=== PATIENT | female | born 1970 | race Caucasian/White ===

== ENCOUNTER 2019-10-31 10:26 | Outpatient (CLI) | payer OTHER, SELFPAY ==
--- NOTE | ~2019-10-31 | MM_ITS ---
EXAMINATION: MM screening justa BI w donnie HISTORY: Screening mammogram, family history of breast cancer in her mother. TECHNIQUE: Craniocaudal and mediolateral oblique 3-D tomosynthesis images were obtained and synthetic 2-D images were generated. CAD analysis was submitted and interpreted. COMPARISON: 10/27/2018, 09/20/2017, 06/22/2011 BREAST PARENCHYMAL COMPOSITION: There are scattered areas of fibroglandular density. FINDINGS: RIGHT BREAST: There is no evidence of suspicious mass, calcification, or architectural distortion to suggest malignancy. There has been no significant interval change. LEFT BREAST: An asymmetry is present in the middle third of the central breast 5.5 cm deep to the nip ple on the craniocaudal view. IMPRESSION: 1. Left breast asymmetry on the craniocaudal view. 2. Additional mammographic views and possible breast ultrasound are recommended. BI-RADS Category 0: Incomplete: Needs additional imaging evaluation. Reviewed, dictated and finalized at location A. IMPRESSION: 1. Left breast asymmetry on the craniocaudal view. 2. Additional mammographic views and possible breast ultrasound are recommended . BI-RADS Category 0: Incomplete: Needs additional imaging evaluation.
== END 2019-10-31 10:27 | disposition home or self-care (01) ==
LOC: ANHIMG 10:28
PROVIDERS: PCP Family Medicine; Visit Provider Nurse Practitioner Obstetrics & Gynecology
DX: Z12.31 Encounter for screening mammogram for malignant neoplasm of breast (principal); R92.8 Other abnormal and inconclusive findings on diagnostic imaging of breast
CPT/HCPCS: 77063; 77067

== ENCOUNTER 2019-11-09 13:53 | Outpatient (CLI) | payer OTHER, SELFPAY ==
--- NOTE | ~2019-11-09 | MMUS_ITS ---
EXAMINATION: MM diagnostic mammo unilat LT, US breast LT limited HISTORY: Abnormal finding on 10/31/2019 screening mammogram TECHNIQUE: Additional 3-D full-field ML and spot CC tomosynthesis images of the left breast were perf ormed and synthetic 2-D images were generated. Rolled medial craniocaudal and rolled lateral cranioca udal views. CAD analysis was submitted and interpreted. High resolution targeted mid medial left [address] ultrasound was performed. COMPARISON: 10/31/2019 bilateral digital screening mammogram FINDINGS: MAMMOGRAPHIC FINDINGS: No reproducible mass or architectural distortion is confirmed. ULTRASOUND: There is no evidence of focal abnormal solid or cystic lesion in the vicinity of the screening mammog sheyla report of asymmetry in the middle third of the central breast 5.5 cm deep to the nipple on cranio caudal view. IMPRESSION: 1. No mammographic evidence of malignancy. 2. Screening mammogram follow-up in 1 year is recommended. BI-RADS Category 1: Negative Reviewed, dictated and finalized at location A. IMPRESSION: 1. No mammographic evidence of malignancy. 2. Screening mammogram follow-up in 1 year is recommended. BI-RADS Category 1: Negative
== END 2019-11-09 13:54 | disposition home or self-care (01) ==
PROVIDERS: PCP Family Medicine; Visit Provider Nurse Practitioner Obstetrics & Gynecology
DX: R92.8 Other abnormal and inconclusive findings on diagnostic imaging of breast (principal)
CPT/HCPCS: 76642; 77065

== ENCOUNTER 2020-01-23 02:09 | Outpatient (CLI) | payer OTHER, SELFPAY ==
[2020-01-23 17:03] LABS: SARS-CoV-2 RNA PCR Negative
== END 2020-01-23 02:10 | disposition home or self-care (01) ==
LOC: ANHCOVIDDT 02:09
PROVIDERS: PCP Family Medicine; Visit Provider Internal Medicine Gastroenterology
DX: Z01.812 Encounter for preprocedural laboratory examination (principal); Z11.59 Encounter for screening for other viral diseases
CPT/HCPCS: 87635; C9803; U0003

== ENCOUNTER 2020-01-25 00:42 | Day surgery (SDC) | payer OTHER, SELFPAY ==
[2020-01-15 14:09] VITALS: BMI 29.4
[2020-01-25 06:33] VITALS: BP 142/96; RESP 16; TEMP 36.6; O2SAT 100; BMI 29.3
[2020-01-25] MEDS: LACTATED RINGERS 1,000 ML 150 ML IV CONT (06:51)
--- NOTE | 2020-01-25 07:19 | WPDANESEPPF ---
Anes - Initial Pre Proc Eval Procedure: Operation Date: 01/25/20 07:30 Proposed Procedures p Screening Colonoscopy - Anthony Thurman DO Date/Time: 01/25/20 07:19 Surgeon: Anthony Thurman DO Pre Op Diagnosis: Neoplasm Screening Patient Data Age: 49 Gender: F Height: 1.73 m Weight: 87.5 kg Last Vital Signs Temp 36.6 C 01/25/20 06:33 Resp 16 01/25/20 06:33 BP 142/96 H 01/25/20 06:33 Pulse Ox 100 01/25/20 06:33 Allergies Allergy/AdvReac Type Severity Reaction Status Date / Time No Known Allergies Allergy Unknown Verified 01/25/20 06:28 Home Medications Medication Instructions Recorded Confirmed Type Adult Probiotic 1 tab-cap BYMOUTH DAILY 01/15/20 01/25/20 History levothyroxine 112 mcg PO DAILY 01/15/20 01/25/20 History paroxetine HCl [Paxil] 10 mg PO EVERY OTHER DAY 01/15/20 01/25/20 History paroxetine HCl [Paxil] 15 mg PO EVERY OTHER DAY 01/15/20 01/25/20 History Patient hx anesthesia problems: none Family hx anesthesia problems: none PMFSH Past Medical History Medical History (Updated 01/25/20 @ 07:20 by Arturo Nieves MD) Anxiety Hypothyroidism Overweight (BMI 25.0-29.9) Family History Family History (Updated 12/23/17 @ 14:51 by DOCTOR UNKNOWN) Mother Patient's mother is in good health Father Patient's father is in good health Social History Social History Smoking status: Former smoker Tobacco type: cigarettes Second hand tobacco smoke exposure: No Smoking end date: 05/17/87 Alcohol intake: former Substance use: never Substance use type: does not use Living arrangements: with family Gender identity (if verbalized by the patient): Female Spiritual care concerns: No Anes - Eval Final PreProcedure Day of Procedure 01/25/20 07:19 Patient weight: overweight Heart: regular rate and rhythm Lungs: clear to auscultation and normal air movement Airway: Mallampati scale class II Neurological: alert and oriented Last oral intake: >/= 8 hours ASA classification: II Emergent: no Anesthetic plan: proceed Anesthesia type and monitoring: general GIVS Informed Consent: The patient's anesthetic plan and its attendant risks and benefits were discussed with the patient/family/POA. Questions were solicited and answers provided to the satisfaction of the patient/family/POA.
--- NOTE | 2020-01-25 07:36 | PM.IMHP ---
H&P: HPI History of Present Illness Date/Time: 01/25/20 07:36 Chief complaint: Neoplasm Screening Narrative: Reason for visit colonoscopy. This very pleasant lady was seen in consultation at the request of the primary physician. Impression: Your very pleasant lady that is here for screening and surveillance colonoscopy. She has a history of colon polyps. Chronic constipation compatible with chronic idiopathic constipation. Graves disease. Status post I 131 treatment. On chronic thyroid replacement. Anxiety. Recommendation: Colonoscopy. History: This very pleasant lady has a history of colon polyps. She does have a history of chronic idiopathic constipation. She tried several bowel movement every day. Stools are hard and brown. Does have occasional left lower quadrant pain when she eats peanuts. The review systems otherwise unremarkable. Physical examination: General: very pleasant patient in no acute distress. HEENT: Head was normocephalic sclerae is clear mouth without masses neck was supple. Heart: Rate rhythm regular without S3 or S4. Lungs: CTA. Abdomen: Soft with no guarding or rigidity. Bowel sounds were active. Neurologic: Cranial nerves 2 through 12 intact. No focal defects. No clonus. Musculoskeletal system: Revealed no joint tenderness or swelling no muscle atrophy. Extremities: Reveal no significant edema. Skin: Warm and dry with normal turgor. Mental status: intact. Patient is alert and oriented. Review of Systems Review of Systems: All systems reviewed & are unremarkable except as noted in HPI and below PMFSH Past Medical History Medical History (Updated 01/25/20 @ 07:20 by Arturo Nieves MD) Anxiety Hypothyroidism Overweight (BMI 25.0-29.9) Family History Family History (Updated 12/23/17 @ 14:51 by DOCTOR UNKNOWN) Mother Patient's mother is in good health Father Patient's father is in good health Social History Social History Smoking status: Former smoker Tobacco type: cigarettes Second hand tobacco smoke exposure: No Smoking end date: 05/17/87 Alcohol intake: former Substance use: never Substance use type: does not use Living arrangements: with family Gender identity (if verbalized by the patient): Female Spiritual care concerns: No Meds Home Medications and Allergies Home Medications Medication Instructions Recorded Confirmed Type Adult Probiotic 1 tab-cap BYMOUTH DAILY 01/15/20 01/25/20 History levothyroxine 112 mcg PO DAILY 01/15/20 01/25/20 History paroxetine HCl [Paxil] 10 mg PO EVERY OTHER DAY 01/15/20 01/25/20 History paroxetine HCl [Paxil] 15 mg PO EVERY OTHER DAY 01/15/20 01/25/20 History Allergies Allergy/AdvReac Type Severity Reaction Status Date / Time No Known Allergies Allergy Unknown Verified 01/25/20 06:28 Vital Signs Vital Signs - 24 hr 01/25/20 06:33 Temperature 36.6 C Respiratory Rate 16 Blood Pressure 142/96 H Pulse Oximetry 100
[2020-01-25 08:03] VITALS: BP 97/64; PULSE 98; RESP 26; O2SAT 99
[2020-01-25 08:13] VITALS: BP 108/73; PULSE 89; RESP 18; O2SAT 96
[2020-01-25 08:23] VITALS: BP 110/75; PULSE 90; RESP 22; O2SAT 99
== END 2020-01-25 08:36 | disposition home or self-care (01) ==
PROVIDERS: PCP Family Medicine; Visit Provider Internal Medicine Gastroenterology
PROC: 0DJD8ZZ Inspection of Lower Intestinal Tract, Via Natural or Artificial Opening Endoscopic (ICD-10-PCS; CPT 45378; principal; 2020-01-25 07:30)
DX: Z12.11 Encounter for screening for malignant neoplasm of colon (principal); K59.09 Other constipation; K64.8 Other hemorrhoids; Z86.010 Personal history of colon polyps; E03.9 Hypothyroidism, unspecified; F41.9 Anxiety disorder, unspecified; Z87.891 Personal history of nicotine dependence
CPT/HCPCS: 45378; J2704; J7120

== ENCOUNTER 2020-08-22 12:58 | Outpatient (CLI) | payer OTHER, SELFPAY ==
--- NOTE | ~2020-08-22 | MMUS_ITS ---
EXAMINATION: MM diagnostic justa BI w donnie, US breast LT limited HISTORY: Left 5:00 breast lump TECHNIQUE: ML, MLO and craniocaudal 3-D tomosynthesis images of both breasts were performed and synth [facility] 2-D images were generated. CAD analysis was submitted and interpreted. High resolution lower inn er and lower outer quadrant left breast ultrasound was performed. COMPARISON: 11/09/2019 diagnostic left mammogram and limited left breast ultrasound , 10/27/2018, 09/20/2017 bilateral digital screening mammogram examinations BREAST PARENCHYMAL COMPOSITION: There are scattered areas of fibroglandular density. FINDINGS: MAMMOGRAPHIC FINDINGS: No suspicious mass or architectural distortion, malignant calcification, skin thickening or retractio n or significant new or developing density is detected. ULTRASOUND: No suspicious mass or shadowing, cyst or other significant sonographic finding is noted in the lower half of the left breast. IMPRESSION: 1. No mammographic evidence of malignancy 2. Routine mammographic screening is recommended. BI-RADS Category 1: Negative Reviewed, dictated and finalized at location A. IMPRESSION: 1. No mammographic evidence of malignancy 2. Routine mammographic screening is recommended. BI-RADS Category 1: Negative
== END 2020-08-22 12:59 | disposition home or self-care (01) ==
LOC: ANHIMG 13:01
PROVIDERS: PCP Family Medicine
DX: N63.23 Unspecified lump in the left breast, lower outer quadrant (principal)
CPT/HCPCS: 76642; 77062; 77066; G0279

== ENCOUNTER 2021-11-25 14:12 | Outpatient (CLI) | payer OTHER, SELFPAY ==
--- NOTE | ~2021-11-25 | MM_ITS ---
EXAMINATION: MM screening justa BI w donnie HISTORY: Screening mammogram, family history of breast cancer in her mother. TECHNIQUE: Craniocaudal and mediolateral oblique 3-D tomosynthesis images were obtained and synthetic 2-D images were generated. CAD analysis was submitted and interpreted. COMPARISON: 08/22/2020, 11/09/2019, 10/31/2019, 10/27/2018 BREAST PARENCHYMAL COMPOSITION: There are scattered areas of fibroglandular density. FINDINGS: There is no suspicious mass, calcification, or architectural distortion to suggest malignan cy in either breast. There has been no suspicious interval change. IMPRESSION: 1. No mammographic evidence of malignancy. 2. Recommend routine screening mammography in one year. BI-RADS Category 1: Negative Reviewed, dictated and finalized at location A.
== END 2021-11-25 14:13 | disposition home or self-care (01) ==
PROVIDERS: PCP Family Medicine; Visit Provider Family Medicine
DX: Z12.31 Encounter for screening mammogram for malignant neoplasm of breast (principal)
CPT/HCPCS: 77063; 77067

== ENCOUNTER 2024-04-10 09:10 | Outpatient (CLI) | payer OTHER, SELFPAY ==
--- NOTE | ~2024-04-10 | MM_ITS ---
EXAMINATION: MM screening justa BI w donnie HISTORY: Screening TECHNIQUE: Craniocaudal and mediolateral oblique 3-D tomosynthesis images were obtained and synthetic 2-D images were generated. CAD analysis was submitted and interpreted. COMPARISON: Comparison to multiple prior studies sequentially, with oldest reviewed study dated 11/2017. BREAST PARENCHYMAL COMPOSITION: Not dense: There are scattered areas of fibroglandular density. FINDINGS: There is no evidence of suspicious mass, calcification, or architectural distortion to sugg est malignancy in either breast. There has been no suspicious interval change. IMPRESSION: 1. No mammographic evidence of malignancy. 2. Recommend routine screening mammography in one year. BI-RADS Category 1: Negative Reviewed, dictated and finalized at location [] [facility]
== END 2024-04-10 09:11 | disposition home or self-care (01) ==
LOC: ANHIMG 09:12
PROVIDERS: PCP Family Medicine; Visit Provider Family Medicine
DX: Z12.31 Encounter for screening mammogram for malignant neoplasm of breast (principal)
CPT/HCPCS: 77063; 77067